=== PATIENT | female | born 1995 | race Caucasian/White ===

== ENCOUNTER 2016-11-11 21:54 | Emergency (ER) | payer OTHER, BC ==
[~2016-11-11] VITALS: Ht 157.5 cm; Wt 62.7 kg
[~2016-11-11 21:54] MED LIST: LAMICTAL150 MG PO; NORCO 325 MG-51 TAB PO; OMNICEF 300MG300 MG PO; ZITHROMAX 250M250 MG PO; ZOFRAN ODT4 MG PO
[2016-11-11 21:57] VITALS: BP 131/79; TEMP 98
[2016-11-11 22:56] VITALS: PULSE 78
== END 2016-11-11 22:57 | disposition home or self-care (01) ==
LOC: COL.ER 21:54
DX: M25.551 Pain in right hip (principal); G40.909 Epilepsy, unspecified, not intractable, without status epilepticus

== ENCOUNTER 2017-05-30 12:40 | Emergency (ER) | payer OTHER, BC ==
[~2017-05-30] VITALS: Ht 157.5 cm; Wt 60.0 kg
[2017-05-30] MEDS ORDERED: MIGRAINE MEDICATION (12:43)
[2017-05-30 12:44] VITALS: TEMP 97.5
[2017-05-30 14:03] LABS: BASO # 0.1 (0.0-0.2); BASO % 1.2 % (0.0-2.0); EOS # 0.9 (0.0-0.7); EOS % 7.5 % (0-4.0); GRAN # 7.3 (1.4-6.5); GRAN % 63.9 % (42.2-75.2); HEMATOCRIT 40.9 % (35.0-45.0); HEMOGLOBIN 13.2 g/dl (12.0-15.0); LYMPH # 2.3 (1.2-3.4); LYMPH % 20.4 % (20.0-51.0); MEAN CELL VOLUME 88 fl (80.0-95.0); MEAN CORPUSCULAR HEMOGLOBIN 28 pg (26.0-32.0); MEAN CORPUSCULAR HGB CONC 32 g/dl (33.0-37.0); MEAN PLATELET VOLUME 9.4 fl (7.4-10.4); MONO # 0.8 (0.1-0.6); MONO % 6.7 % (1.7-9.3); PLATELET COUNT 256 K/mm3 (130-400); RED BLOOD COUNT 4.65 M/mm3 (4.10-5.30); REDCELL DISTRIBUTION WIDTH-CV 12.9 % (11.5-14.5)
[2017-05-30 14:18] LABS: ALANINE AMINOTRANSFERASE 30 U/L (9-52); ALBUMIN 4.6 gm/dL (3.5-5.0); ALKALINE PHOSPHATASE 70 U/L (50-136); ANION GAP 9 mmol/L (7-16); AST,SGOT 29 U/L (15-37); BILIRUBIN,TOTAL 0.4 mg/dL (0.0-1.0); BLOOD UREA NITROGEN 10 mg/dL (7-17); CALCIUM 9.2 mg/dL (8.4-10.2); CARBON DIOXIDE 27 mmol/L (22-30); CHLORIDE 104 mmol/L (98-107); CREATININE, serum 0.72 mg/dL (0.52-1.25); GLUCOSE 78 mg/dL (74-106); SODIUM 140 mmol/L (137-145); TOTAL PROTEIN 7.6 gm/dL (6.4-8.2)
[2017-05-30 14:20] LABS: C-REACTIVE PROTEIN < 0.5 mg/dL (0.0-0.9)
[2017-05-30 14:33] LABS: PROLACTIN 13.9 ng/mL (3.0-18.6)
[2017-05-30 14:36] LABS: COLLECTION METHOD CLEAN CATCH
[2017-05-30 14:56] LABS: MUCOUS Present /lpf; PH 7 (5-8); SQUAMOUS EPITHELIAL 0-2 /hpf; URINE APPEARANCE Clear; URINE BACTERIA Occasional /hpf; URINE BILIRUBIN Negative (NEGATIVE); URINE BLOOD 3+ (NEGATIVE); URINE COLOR Yellow; URINE GLUCOSE Negative (NEGATIVE); URINE KETONE Negative (NEGATIVE); URINE LEUKOCYTE ESTERASE Negative (NEGATIVE); URINE NITRATE Positive (NEGATIVE); URINE PROTEIN(semi-quant) 1+ (NEGATIVE); URINE RBC >50 /hpf; URINE UROBILINOGEN Negative (NEGATIVE)
[2017-05-30 15:26] VITALS: BP 117/88; PULSE 85
[2017-06-01] MEDS ORDERED: MACROBID 1100 MG/CAP PO (02:00)
== END 2017-05-30 15:27 | disposition home or self-care (01) ==
LOC: COL.ER 12:40
PROVIDERS: Nurse Practitioner
DX: R55 Syncope and collapse (principal); G43.909 Migraine, unspecified, not intractable, without status migrainosus; Z87.891 Personal history of nicotine dependence; Z98.890 Other specified postprocedural states
CPT/HCPCS: J7030

== ENCOUNTER 2018-09-27 19:16 | Emergency (ER) | payer OTHER, BC ==
[~2018-09-27] VITALS: Ht 157.5 cm; Wt 63.6 kg
[~2018-09-27 19:16] MED LIST changes: +MACROBID 1100 MG/CAP PO; +MIGRAINE MEDICATION
[2018-09-27 19:24] VITALS: BP 110/82; TEMP 97.5
[2018-09-27 20:30] VITALS: PULSE 82
== END 2018-09-27 20:30 | disposition home or self-care (01) ==
LOC: COL.ER 19:16
DX: M54.42 Lumbago with sciatica, left side (principal); F17.210 Nicotine dependence, cigarettes, uncomplicated
CPT/HCPCS: J1885

== ENCOUNTER 2021-12-16 22:18 | Emergency (ER) | payer BC ==
[~2021-12-16] VITALS: Ht 160 cm; Wt 63.6 kg
[2021-12-16 23:20] LABS: STREP SCREEN NEGATIVE
[2021-12-17] MEDS ORDERED: AMOXICILLIN875 MG PO (00:01)
[2021-12-17 00:11] VITALS: BP 115/74; PULSE 128; TEMP 100
== END 2021-12-17 00:12 | disposition home or self-care (01) ==
LOC: COL.ER 22:18
PROVIDERS: Emergency Medicine
DX: L04.0 Acute lymphadenitis of face, head and neck (principal); J39.2 Other diseases of pharynx; Z20.822 Contact with and (suspected) exposure to COVID-19
CPT/HCPCS: J8540

== ENCOUNTER → 2022-08-11 | Outpatient (CLI) | payer BC ==
[~2022-08-11] MED LIST changes: +AMOXICILLIN875 MG PO
== END ==
LOC: COL.RAD 14:36
DX: N83.201 Unspecified ovarian cyst, right side (principal); N32.89 Other specified disorders of bladder
CPT/HCPCS: Q9967